=== PATIENT | male | born 1950 | race Caucasian/White ===

== ENCOUNTER 2019-01-19 13:08 | Emergency (ER) | payer MEDICARE, OTHER ==
[2019-01-19 13:25] VITALS: BP 225/102
--- NOTE | 2019-01-19 14:05 | UC ---
Knee Pain HPI - HPI Summary HPI Summary: 68 yo male presents with LEFT knee pain. He tells me that 2 days ago he fell and landed on his knees. He didn't have much pain at that time. Yesterday was active and played 18 holes of golf with little pain or swelling. This morning he woke up and his left knee was warm, swollen, and was very painful to bend. He is able to ambulate, but painful to weight bear and has a mild limp. He states he has usually taken NSAIDs in the past for bursitis to his knees, but has not helped this time. - History of Current Complaint Chief Complaint: UCLowerExtremity Stated Complaint: KNEE INJURY Time Seen by Provider: 01/19/19 13:57 Hx Obtained From: Patient Onset/Duration: Sudden Onset Severity Initially: Mild Severity Currently: Moderate Pain Intensity: 6 Pain Scale Used: 0-10 Numeric - Allergies/Home Medications Allergies/Adverse Reactions: Allergies Allergy/AdvReac Type Severity Reaction Status Date / Time No Known Allergies Allergy Verified 01/19/19 13:26 Home Medications: Home Medications Aspirin 81 mg CHEW TAB* 1 tab PO DAILY 01/19/19 [History Confirmed 01/19/19] Omeprazole 20 mg PO DAILY 01/19/19 [History Confirmed 01/19/19] PMH/Surg Hx/FS Hx/Imm Hx GI/ History: Gastroesophageal Reflux Other History Of: Negative For: HIV, Hepatitis B, Hepatitis C - Surgical History Surgical History: Yes Surgery Procedure, Year, and Place: SKIN REMOVED FROM BILAT EYELIDS carpal tunnel surgery right wrist - Family History Known Family History: Positive: Other - Cancer - Social History Occupation: Retired Lives: With Family Alcohol Use: Occasionally Substance Use Type: None Smoking Status (MU): Former Smoker When Did the Patient Quit Smoking/Using Tobacco: 20 YRS Review of Systems All Other Systems Reviewed And Are Negative: Yes Constitutional: Positive: Negative Skin: Positive: Negative Respiratory: Positive: Negative Cardiovascular: Positive: Negative Neurovascular: Positive: Negative Musculoskeletal: Positive: Other: - Left knee pain Neurological: Positive: Negative Psychological: Positive: Negative Physical Exam - Summary Physical Exam Summary: GENERAL: NAD. WDWN. No pain distress. SKIN: No rashes, sores, lesions, or open wounds. CHEST: No accessory muscle use. Breathing comfortably and in no distress. CV: . Pulses intact popliteal, PT, and DP. Cap refill <2seconds MSK: LEFT KNEE: Moderate edema about knee joint with mild erythema and warmth. Keeps knee in extension or 10-20deg of flexion due to pain with flexion. He is able to flex to ~90 to 100deg, but forces it and has moderate pain. Healed abrasion 3-4mm abrasion overlying skin of patella. NEURO: Alert. Sensations intact and symmetric B/L LEs PSYCH: Age appropriate behavior. Triage Information Reviewed: Yes Vital Signs: Initial Vital Signs Temp 7.8 F 01/19/19 13:23 Pulse 73 01/19/19 13:23 Resp 17 01/19/19 13:23 BP 225/102 01/19/19 13:23 Pulse Ox 100 01/19/19 13:23 Vital Signs Reviewed: Yes Knee Pain Course/Dx - Course Course Of Treatment: XR: IMPRESSION: Joint effusion. No fracture is noted. I am concerned pt may have or is developing a septic joint. I called Orthopedics to see if they could see pt in the office today, but Dr. Davidson recommend pt be sent to the ER for lab testing and possible joint aspiration. Discussed this with pt and his will drive him. - Differential Dx/Diagnosis Provider Diagnosis: Left knee pain Discharge - Sign-Out/Discharge Documenting (check all that apply): Patient Departure All imaging exams completed and their final reports reviewed: Yes - Discharge Plan Condition: Stable Disposition: HOME-RECOMMEND TO ED Referrals: Mo Lee MD [Primary Care Provider] - Additional Instructions: I spoke to Orthopedics and they recommend that you go to the ER for further evaluation of your painful, red, warm, and swollen knee - Billing Disposition and Condition Condition: STABLE Disposition: Home-Recommend to ED
== END 2019-01-19 14:40 | disposition home health service (06) ==
LOC: UCEAST 13:08
DX: M25.562 Pain in left knee (principal)
CPT/HCPCS: 99212; G0463

== ENCOUNTER 2019-01-19 14:57 | Emergency (ER) | payer MEDICARE ==
--- NOTE | 2019-01-19 16:29 | ED ---
Lower Extremity - HPI Summary HPI Summary: This patient is a 68 year old male presenting to [facility] with a chief complaint of left knee pain since two days ago. The patient reports edema in the knee. He has a Hx of bilateral knee bursitis. The patient states he fell up concrete steps and hit his knee. He states the pain flared up whene he was playing a round of golf. He rates his pain 6/10 in severity.Pt denies any fever, chills, erythema of eyes, sore throat, CP, SOB, cough, abdominal pain, N/V, dysuria, hematuria, myalgia, rash, or dizziness. - History of Current Complaint Chief Complaint: EDExtremityLower Stated Complaint: LEFT KNEE PAIN PER PT Time Seen by Provider: 01/19/19 16:00 Hx Obtained From: Patient Severity Initially: Moderate Severity Currently: Moderate Pain Intensity: 6 Pain Scale Used: 0-10 Numeric - Allergies/Home Medications Allergies/Adverse Reactions: Allergies Allergy/AdvReac Type Severity Reaction Status Date / Time No Known Allergies Allergy Verified 01/19/19 13:26 PMH/Surg Hx/FS Hx/Imm Hx Endocrine/Hematology History: Denies: Hx Diabetes, Hx Thyroid Disease Cardiovascular History: Reports: Hx Hypertension Denies: Hx Congestive Heart Failure, Hx Deep Vein Thrombosis, Hx Myocardial Infarction, Hx Pacemaker/ICD Respiratory History: Reports: Hx Chronic Obstructive Pulmonary Disease (COPD) Denies: Hx Asthma, Hx Lung Cancer, Hx Pneumonia, Hx Pulmonary Embolism GI History: Denies: Hx Gall Bladder Disease, Hx Gastrointestinal Bleed, Hx Ulcer, Hx Urosepsis History: Denies: Hx Kidney Stones, Hx Renal Disease Neurological History: Denies: Hx Dementia, Hx Migraine, Hx Seizures, Hx Transient Ischemic Attacks (TIA) Psychiatric History: Denies: Hx Anxiety, Hx Depression, Hx Schizophrenia, Hx Bipolar Disorder - Surgical History Surgery Procedure, Year, and Place: SKIN REMOVED FROM BILAT EYELIDS carpal tunnel surgery right wrist Infectious Disease History: No Infectious Disease History: Denies: Traveled Outside the [place] in Last 30 Days - Family History Known Family History: Positive: Other - Cancer - Social History Alcohol Use: Occasionally Substance Use Type: Reports: None Smoking Status (MU): Former Smoker Review of Systems Negative: Fever, Chills Negative: Erythema Negative: Sore Throat Negative: Chest Pain Negative: Shortness Of Breath, Cough Negative: Abdominal Pain, Diarrhea, Nausea Negative: dysuria, hematuria Positive: Arthralgia, Edema. Negative: Myalgia Negative: Rash Neurological: Other - Neg: Dizziness All Other Systems Reviewed And Are Negative: No Physical Exam - Summary Physical Exam Summary: Constitutional: Well-developed, Well-nourished, Alert. (-) Distressed Skin: Warm, Dry HENT: Normocephalic; Atraumatic Eyes: Conjunctiva normal Neck: Musculoskeletal ROM normal neck. (-) JVD, (-) Stridor, (-) Tracheal deviation Cardio: Rhythm regular, rate normal, Heart sounds normal; Intact distal pulses; The pedal pulses are 2+ and symmetric. Radial pulses are 2+ and symmetric. (-) Murmur Pulmonary/Chest wall: Effort normal. (-) Respiratory distress, (-) Wheezes, (-) Rales Abd: Soft, (-) tenderness, (-) Distension, (-) Guarding, (-) Rebound Musculoskeletal: (-) Edema Lymph: (-) Cervical adenopathy Neuro: Alert, Oriented x3 Psych: Mood and affect Normal Triage Information Reviewed: Yes Vital Signs On Initial Exam: Initial Vitals Temp Pulse Resp BP Pulse Ox 99.4 F 76 20 214/92 97 01/19/19 15:07 01/19/19 15:07 01/19/19 15:07 01/19/19 15:07 01/19/19 15:07 Vital Signs Reviewed: Yes Diagnostics - Vital Signs Vital Signs Temp Pulse Resp BP Pulse Ox 01/19/19 15:07 99.4 F 76 20 214/92 97 - Laboratory Result Diagrams: 01/19/19 16:23 01/19/19 16:23 Lab Statement: Any lab studies that have been ordered have been reviewed, and results considered in the medical decision making process. Lower Extremity Course/Dx - Course Course Of Treatment: This patient is a 68 year old male presenting to [facility] with a chief complaint of left knee pain since two days ago. Lab results were unremarkbale for gout. An incision and drainage procedure was done to treat the inflammation. Patient will be diagnosed with left knee joint effusion and discharged. This plan was discussed with the patient and he was agreeable with this plan. - Diagnoses Provider Diagnoses: Effusion of left knee Discharge - Sign-Out/Discharge Documenting (check all that apply): Patient Departure - Discharge Patient Received Moderate/Deep Sedation with Procedure: No - Discharge Plan Condition: Stable Disposition: HOME Prescriptions: predniSONE [Prednisone 20 MG TAB] 40 mg PO DAILY 5 Days #10 tablet Patient Education Materials: Swollen Knee Joint (ED) Referrals: Mo Lee MD [Primary Care Provider] - Additional Instructions: Your knee fluid did not show any sign of infection, which was the main reason for obtaining that fluid, to rule out a septic (infected) knee joint. Return to ED with any new or worsening symptoms. - Billing Disposition and Condition Condition: STABLE Disposition: Home - Attestation Statements Document Initiated by Scribe: Yes Documenting Scribe: Chapito Cespedes Provider For Whom Scribe is Documenting (Include Credential): Alonso Mosquera MD Scribe Attestation: Chapito Mlilan, scribed for Alonso Mosquera MD on 01/26/19 at 1248. Scribe Documentation Reviewed: Yes Provider Attestation: The documentation as recorded by the Chapito garza accurately reflects the service I personally performed and the decisions made by Alonso jeffries MD Status of Scribe Document: Viewed
[2019-01-19 16:33] LABS: Hematocrit 45 % (42-52); Hemoglobin 15.4 g/dL (14.0-18.0); Mean Corpuscular HGB Conc 34 g/dL (31-36); Mean Corpuscular Hemoglobin 33 pg (27-31); Mean Corpuscular Volume 96 fL (80-94); Mean Platelet Volume 8.9 fL (7.4-10.4); Platelet Count 167 10^3/uL (150-450); Red Blood Count 4.65 10^6 /uL (4.18-5.48); Red Cell Distribution Width 13 % (10.5-15)
[2019-01-19] MEDS ORDERED: Naproxen TAB* 250 MG PO ONE (16:33)
[2019-01-19] MEDS ORDERED: HYDROcodone/ACETAMIN 5-325 MG* 1 TAB PO ONE ×2 (16:33→19:21)
[2019-01-19 16:49] LABS: Albumin 4.3 g/dL (3.2-5.2); BUN/Creatinine Ratio 10.5 (8-20); Calcium 9.6 mg/dL (8.6-10.3); EGFR African American 69.7 (>60); EGFR Non-African American 57.6 (>60); Globulin 4.2 g/dL (2-4); Potassium 4.2 mmol/L (3.5-5.0); Total Bilirubin 0.6 mg/dL (0.2-1.0); Total Protein 8.5 g/dL (6.4-8.9); Uric Acid 5.8 mg/dL (4.4-7.6)
[2019-01-19 17:33] LABS: C Reactive Protein 20.97 mg/L (<8.01)
[2019-01-19 17:58] LABS: Erythrocyte Sed Rate 9 mm/Hr (0-19)
--- NOTE | 2019-01-19 19:43 | ED ---
Course/Dx - Course Course Of Treatment: This patient is a 68 year old male presenting to [facility] with a chief complaint of left knee pain since two days ago. Lab results were unremarkbale for gout. An incision and drainage procedure was done to treat the inflammation. Patient will be diagnosed with left knee joint effusion and discharged. This plan was discussed with the patient and he was agreeable with this plan. - Diagnoses Provider Diagnoses: Effusion of left knee Discharge - Sign-Out/Discharge Documenting (check all that apply): Patient Departure Patient Received Moderate/Deep Sedation with Procedure: No - Discharge Plan Condition: Stable Disposition: HOME Patient Education Materials: Swollen Knee Joint (ED) Referrals: Mo Lee MD [Primary Care Provider] - Additional Instructions: Return to ED with any new or worsening symptoms. - Billing Disposition and Condition Condition: STABLE Disposition: Home - Attestation Statements Document Initiated by Scribe: No Procedures - Procedure Summary Procedure Summary: After prep with betadine and local anesthetic with 2% xylocaine, I was able to get approx 4 ml of synovial fluid via medial approach to the right knee. Fluid is slightly bloody but not purulent.
[2019-01-19 19:56] LABS: Body Fluid Source Synovial Fluid
[2019-01-19 21:28] LABS: Body Fluid Mono 20 %
[2019-01-19] MEDS ORDERED: predniSONE TAB* 20 MG PO ONE (21:35)
[2019-01-19 21:57] VITALS: BP 180/78
[2019-01-21 17:44] LABS: Lactate Dehydrogenase, BF 88 U/L
[2019-01-23 14:35] LABS: B garinii/B afzelii PCR Negative (Negative); B mayonii PCR Negative (Negative)
== END 2019-01-19 22:01 | disposition home or self-care (01) ==
LOC: ED 14:57
DX: M25.462 Effusion, left knee (principal); I10 Essential (primary) hypertension; J44.9 Chronic obstructive pulmonary disease, unspecified; Z87.891 Personal history of nicotine dependence
CPT/HCPCS: 36415; 80053; 82945; 83615; 84157; 84550; 85027; 85652; 86140; 87070; 87205; 87476; 87640; 87641; 87798; 89051; 99283; A9270-GY; J7512